=== PATIENT | male | born 1970 | race African-American/Black ===

== ENCOUNTER 2018-04-28 21:48 | Emergency (ER) | payer BC ==
[~2018-04-28] VITALS: Ht 188 cm; Wt 147.7 kg
[~2018-04-28 21:48] MED LIST: ACYCLOVIR400 MG PO; AMLOPIDINE; AZITHROMYCIN250 MG PO; CEPHALEXIN500 M1 PO; CIPRO 500MG TA500 MG PO; CLARITIN 1010 MG/TAB PO; DILTIAZEM30 MG PO; FLEXERIL; FLEXERIL 1010 MG/TAB PO; GEODON80 MG PO; HCTZ; HCTZ 25MG25 MG PO; HYDRODIURIL50 MG PO; LOPRESSOR; MICRO-K10 MEQ PO; NORCO 325 MG-51 TAB PO; NORVASC; SINGULAIR; TOPROL XL50 MG PO; TRAMADOL; TUSS PO; VENTOLIN0.09 MG IH; ZANTAC 150150 MG PO; ZOCOR; ZOFRAN8 MG PO; ZOLOFT50 MG PO; [UNRECOGNIZED DRUG - REMARK]
[2018-04-28 22:58] VITALS: BP 137/87; PULSE 68
== END 2018-04-28 23:02 | disposition home or self-care (01) ==
LOC: COL.ER 21:48
DX: S01.511A Laceration without foreign body of lip, initial encounter (principal); I10 Essential (primary) hypertension; E78.00 Pure hypercholesterolemia, unspecified; Z23 Encounter for immunization; W01.198A Fall on same level from slipping, tripping and stumbling with subsequent striking against other object, initial encounter; Y92.009 Unspecified place in unspecified non-institutional (private) residence as the place of occurrence of the external cause

== ENCOUNTER → 2018-05-05 | Emergency (ER) | payer BC ==
[2018-05-05 09:34] VITALS: BP 133/74; PULSE 69; TEMP 97.9
== END ==
LOC: COL.ER 09:30
DX: S01.511D Laceration without foreign body of lip, subsequent encounter (principal)

== ENCOUNTER 2021-04-18 10:55 | Emergency (ER) | payer OTHER, BC ==
[~2021-04-18] VITALS: Ht 157.5 cm; Wt 143.2 kg
[2021-04-18 11:03] VITALS: TEMP 98.2
[2021-04-18] MEDS ORDERED: ULTRAM ER100 MG PO (11:39)
[2021-04-18 11:45] VITALS: BP 146/81; PULSE 67
[2021-04-18] MEDS ORDERED: NORCO 325 MG-51 TAB PO (12:54)
== END 2021-04-18 11:45 | disposition home or self-care (01) ==
LOC: COL.ER 10:55
DX: K02.9 Dental caries, unspecified (principal); I10 Essential (primary) hypertension; E78.5 Hyperlipidemia, unspecified; F32.A Depression, unspecified; Z79.899 Other long term (current) drug therapy